=== PATIENT | male | born 1995 | race African-American/Black ===

== ENCOUNTER 2019-07-15 17:20 | Emergency (ER) | payer SELFPAY ==
[~2019-07-15] VITALS: Ht 185.4 cm; Wt 78.5 kg
[2019-07-15] MEDS ORDERED: IV NORMAL SALINE 1000ML BAG 1,000 ML IV SCH (17:50)
--- NOTE | 2019-07-15 17:58 | PHYS DOC ---
Past Medical History Past Medical History: No Pertinent History (ADRIÁN BARNARD MD) Smoking: Cigarettes Drug Use: Marijuana (ADRIÁN BARNARD MD) Adult General HPI HPI Patient is a healthy 23-year-old male who presents to the emergency department for evaluation via EMS. 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 He is feeling significantly better after getting into the cool air in the ambulance and receiving 500 mL of IV fluids via EMS. He does still report some mild residual cramping in his legs bilaterally. He denies any numbness, weakness, chest pain, shortness of breath, dizziness, or lightheadedness. There are no alleviating or exacerbating factors to his symptoms, except as noted above. (ADRIÁN BARNARD MD) Review of Systems Review of Systems Constitutional: Denies fever or chills [] Eyes: Denies change in visual acuity, redness, or eye pain [] HENT: Denies nasal congestion or sore throat [] Respiratory: Denies cough or shortness of breath [] Cardiovascular: The patient denies any shortness of breath, chest pain, palpitations, or orthopnea [] GI: Denies abdominal pain, nausea, vomiting, bloody stools or diarrhea. : Denies dysuria or hematuria [] Musculoskeletal: Denies back pain or joint pain. Reports myalgias. [] Integument: Denies rash or skin lesions [] Neurologic: Denies headache, focal weakness or sensory changes [] Endocrine: Denies polyuria or polydipsia [] All other systems were reviewed and found to be within normal limits, except as documented in this note. (ADRIÁN BARNARD MD) Current Medications Current Medications Current Medications Medications (Trade) Dose Ordered Sig/Martin Start Time Stop Time Status Last Admin Dose Admin Acetaminophen (Tylenol) 1,000 mg 1X ONCE 07/15/19 18:30 07/15/19 18:31 DC 07/15/19 18:30 1,000 MG Sodium Chloride 1,000 ml @ 1,000 mls/hr Q1H 07/15/19 17:50 07/15/19 18:49 DC 07/15/19 18:04 1,000 MLS/HR (INDIA ROBLES DO) Allergies Allergies Allergies Coded Allergies Type Severity Reaction Last Updated Verified No Known Drug Allergies 07/15/19 No (INDIA ROBLES DO) Physical Exam Physical Exam PHYSICAL EXAM: CONSTITUTIONAL: Well developed, well nourished HEAD: normocephalic, atraumatic EENT: PERRL, EOMI. Conjunctivae normal color, sclerae non-icteric; moist mucous membranes. NECK: Supple, non-tender; no meningismus. LUNGS: Lungs CTA, breathing even and unlabored. Normal air movement. HEART: Regular rate and rhythm, no murmur CHEST: No deformity; non-tender ABDOMEN: The abdomen is soft, and non-tender, no masses or bruits. EXTREM: Normal ROM; no deformity, no calf tenderness. Normal pulses palpable in all extremities. There is no pedal edema tissue compartments are soft in the extremities.. SKIN: No rash; no diaphoresis NEURO: Alert; normal speech and cognition; CN's grossly intact; strength grossly intact without focal deficit. BACK: No CVA TTP. (ADRIÁN BARNARD MD) Physical Exam Constitutional: Well developed, well nourished, no acute distress, non-toxic appearance HENT: Normocephalic, atraumatic, oropharynx moist Eyes: PERRL, EOMI, conjunctiva normal, no discharge Neck: Normal range of motion, no tenderness, supple Cardiovascular: Heart rate normal, regular rhythm Lungs & Thorax: Bilateral breath sounds clear to auscultation, no wheezing Abdomen: Soft, no tenderness Skin: Warm, dry, no erythema, no rash Extremities: No tenderness, ROM intact, no edema Neurologic: Alert and oriented X 3, normal motor function, normal sensory function, no focal deficits noted Psychologic: Affect normal, judgement normal (INDIA ROBLES DO) Current Patient Data Vital Signs Vital Signs Date Time Temp Pulse Resp B/P (MAP) Pulse Ox O2 Delivery O2 Flow Rate FiO2 07/15/19 17:37 98.4 84 24 137/73 (94) 100 Room Air 98.4 (INDIA ROBLES DO) Lab Values Laboratory Tests Test 07/15/19 17:58 07/15/19 19:40 Sodium Level 139 mmol/L (136-145) Potassium Level 4.4 mmol/L (3.5-5.1) Chloride Level 103 mmol/L (98-107) Carbon Dioxide Level 24 mmol/L (21-32) Anion Gap 12 (6-14) Blood Urea Nitrogen 16 mg/dL (8-26) Creatinine 1.6 mg/dL (0.7-1.3) H Estimated GFR (Cockcroft-Gault) 65.7 BUN/Creatinine Ratio 10 (6-20) Glucose Level 90 mg/dL (70-99) Calcium Level 9.6 mg/dL (8.5-10.1) Phosphorus Level 3.9 mg/dL (2.6-4.7) Magnesium Level 2.0 mg/dL (1.8-2.4) Total Bilirubin 0.5 mg/dL (0.2-1.0) Aspartate Amino Transferase (AST) 34 U/L (15-37) Alanine Aminotransferase (ALT) 17 U/L (16-63) Alkaline Phosphatase 73 U/L (46-116) Creatine Kinase 1211 U/L (39-308) H Total Protein 7.7 g/dL (6.4-8.2) Albumin 4.3 g/dL (3.4-5.0) Albumin/Globulin Ratio 1.3 (1.0-1.7) White Blood Count 6.5 x10^3/uL (4.0-11.0) Red Blood Count 5.45 x10^6/uL (4.30-5.70) Hemoglobin 16.2 g/dL (13.0-17.5) Hematocrit 46.3 % (39.0-53.0) Mean Corpuscular Volume 85 fL (79-100) Mean Corpuscular Hemoglobin 30 pg (25-35) Mean Corpuscular Hemoglobin Concent 35 g/dL (31-37) Red Cell Distribution Width 13.8 % (11.5-14.5) Platelet Count 187 x10^3/uL (140-400) Neutrophils (%) (Auto) 63 % (31-73) Lymphocytes (%) (Auto) 24 % (24-48) Monocytes (%) (Auto) 11 % (0-9) H Eosinophils (%) (Auto) 1 % (0-3) Basophils (%) (Auto) 1 % (0-3) Neutrophils # (Auto) 4.1 x10^3/uL (1.8-7.7) Lymphocytes # (Auto) 1.5 x10^3/uL (1.0-4.8) Monocytes # (Auto) 0.7 x10^3/uL (0.0-1.1) Eosinophils # (Auto) 0.1 x10^3/uL (0.0-0.7) Basophils # (Auto) 0.1 x10^3/uL (0.0-0.2) Laboratory Tests 07/15/19 19:40 Laboratory Tests 07/15/19 17:58 (INDIA ROBLES DO) EKG EKG [] (ADRIÁN BARNARD MD) Radiology/Procedures Radiology/Procedures [] (ADRIÁN BARNARD MD) Course & Med Decision Making Course & Med Decision Making Pertinent Labs studies reviewed. (See chart for details) []6:00 PM: Patient care turned over to Dr robles at shift change, pending labs and final disposition. Report given. (ADRIÁN BARNARD MD) Course & Med Decision Making 1800- Sign out received from Dr. Barnard for patient with concern for heat exhaustion. Patient pending laboratory studies. Patient seen and evaluated by myself. IVF hydration previously completed at 1500mls. CPK elevated. Patient feels significantly improved. Patient stable for discharge with outpatient follow-up with PCP. Discussed findings and plan with patient and family, who acknowledge understanding and agreement. (INDIA ROBLES DO) Dragon Disclaimer Dragon Disclaimer This electronic medical record was generated, in whole or in part, using a voice recognition dictation system. (ADRIÁN BARNARD MD) Departure Departure Impression: Primary Impression: Heat exhaustion Disposition: HOME, SELF-CARE Condition: IMPROVED Patient Instructions: Heat-Related Illness Problem Qualifiers Primary Impression: Heat exhaustion Encounter type: initial encounter Qualified Codes: T67.5XXA - Heat exhaustion, unspecified, initial encounter ADRIÁN BARNARD MD Jul 15, 2019 17:57 INDIA ROBLES DO Jul 15, 2019 20:11
[2019-07-15] MEDS ORDERED: ACETAMINOPHEN 500 MG TABLET PO ONE (18:30)
[2019-07-15 18:33] LABS: CALCIUM 9.6 mg/dL (8.5-10.1); CREATININE 1.6 mg/dL (0.7-1.3); GFR 65.7; POTASSIUM 4.4 mmol/L (3.5-5.1)
[2019-07-15 18:49] LABS: ALBUMIN 4.3 g/dL (3.4-5.0); ALBUMIN/GLOBULIN RATIO 1.3 (1.0-1.7); PHOSPHORUS 3.9 mg/dL (2.6-4.7); TOTAL BILIRUBIN 0.5 mg/dL (0.2-1.0); TOTAL PROTEIN 7.7 g/dL (6.4-8.2)
[2019-07-15 19:47] LABS: BASO # 0.1 x10^3/uL (0.0-0.2); BASO % 1 % (0-3); EOS # 0.1 x10^3/uL (0.0-0.7); EOS % 1 % (0-3); HEMATOCRIT 46.3 % (39.0-53.0); HEMOGLOBIN 16.2 g/dL (13.0-17.5); LYMPH # 1.5 x10^3/uL (1.0-4.8); LYMPH % 24 % (24-48); MEAN CORPUSCULAR HEMOGLOBIN 30 pg (25-35); MEAN CORPUSCULAR HGB CONC 35 g/dL (31-37); MEAN CORPUSCULAR VOLUME 85 fL (79-100); MONO # 0.7 x10^3/uL (0.0-1.1); MONO % 11 % (0-9); NEUT # 4.1 x10^3/uL (1.8-7.7); NEUT % 63 % (31-73); PLATELET COUNT 187 x10^3/uL (140-400); RED BLOOD COUNT 5.45 x10^6/uL (4.30-5.70); RED CELL DISTRIBUTION WIDTH 13.8 % (11.5-14.5); WHITE BLOOD COUNT 6.5 x10^3/uL (4.0-11.0)
[2019-07-15 19:58] VITALS: BP 137/84
[2019-07-15 20:10] LABS: BILIRUBIN,URINE NEGATIVE (NEG); CLARITY,URINE CLEAR; COLOR,URINE YELLOW; NITRITE,URINE NEGATIVE (NEG); PROTEIN,URINE NEGATIVE (NEG-TRACE); UROBILINOGEN,URINE 0.2 mg/dL (0.2 mg/dL)
[2019-07-15 20:17] LABS: BACTERIA,URINE 0 /HPF (0-FEW); RBC,URINE 0 /HPF (0-2); WBC,URINE RARE /HPF (0-4)
== END 2019-07-15 20:29 | disposition home or self-care (01) ==
LOC: ER 17:20
DX: T67.5XXA Heat exhaustion, unspecified, initial encounter (principal); F17.210 Nicotine dependence, cigarettes, uncomplicated; X58.XXXA Exposure to other specified factors, initial encounter; Y93.89 Activity, other specified; Y92.89 Other specified places as the place of occurrence of the external cause; Y99.8 Other external cause status
CPT/HCPCS: 36415; 80053; 81001; 82550; 83735; 84100; 85025; 99285; J7030; 99284